=== PATIENT | male | born 2000 | race Caucasian/White ===

== ENCOUNTER 2021-06-14 00:29 | Emergency (ER) | payer OTHER ==
[~2021-06-14] VITALS: Ht 190.5 cm; Wt 82.2 kg
[2021-06-14] MEDS ORDERED: SODIUM CHLORIDE FLUSH 10ML SYR IVF ONE (01:00)
[2021-06-14] MEDS ORDERED: ONDANSETRON 2MG/ML, 2ML IVPush ONE (01:00)
[2021-06-14] MEDS ORDERED: SODIUM CHLORIDE 0.9% 1,000ML IVBOLUS ONE (01:00)
[2021-06-14] MEDS ORDERED: PLEASE ENTER ALLERGIES MC SCH (01:00)
[2021-06-14 01:05] LABS: BASOPHILS % (AUTO) 1 % (0-1); EOSINOPHILS % (AUTO) 1 % (1-7); LYMPHOCYTES % (AUTO) 16 % (22-44); MEAN CORPUSCULAR HEMOGLOBIN 30.3 pg (27.5-34.5); MEAN CORPUSCULAR HGB CONC 34.6 g/dL (33.2-36.2); MEAN PLATELET VOLUME 8.5 fL (7.4-10.4); MONOCYTES % (AUTO) 6 % (2-9); NEUTROPHILS % (AUTO) 77 % (42-75); PLATELET COUNT 273 x10^3/uL (130-400); RED BLOOD COUNT 5.95 x10^6/uL (4.38-5.82); RED CELL DISTRIBUTION WIDTH 12.9 % (9.4-14.8)
[2021-06-14 01:07] LABS: ALANINE AMINOTRANSFERASE 36 U/L (12-78); ANION GAP 7 mmol/L (5-15); CALCIUM 9.6 mg/dL (8.5-10.1); CHLORIDE 99 mmol/L (98-107); CREATININE 1.03 mg/dL (0.7-1.3)
[2021-06-14 01:10] LABS: ALKALINE PHOSPHATASE 68 U/L (45-117); BILIRUBIN,TOTAL 0.9 mg/dL (0.2-1.0); TOTAL PROTEIN 8.5 g/dL (6.4-8.2)
--- NOTE | 2021-06-14 01:35 | NUR ---
PT AMBULATED BACK TO THIS RNS ROOM AT THIS TIME. NAD, CAME IN FOR ABDOMINAL PAIN AND N/V FOR 2 DAYS, ALSO CO PENNY. PT REPORTS ONLY BEING ABLE TO KEEP DOWN PRUNE JUICE AND SOME DIARRHEA WITH SYMPTOMS. Patient is resting comfortably in bed. Bed in lowest, rails engaged, call light on lap. Vital Signs within normal limits. WCTM.
[2021-06-14] MEDS ORDERED: ONDANSETRON 2MG/ML, 2ML ONE (01:38)
--- NOTE | 2021-06-14 01:59 | NUR ---
Patient is resting comfortably in bed. Bed in lowest, rails engaged, call light on lap. Vital Signs within normal limits. MEDICATED PER NOV. WCTM.
[2021-06-14 02:48] VITALS: BP 122/68
--- NOTE | 2021-06-14 02:49 | NUR ---
Patient given discharge instructions and they have confirmed that they understand the instructions. Patient ambulatory with steady gait. NAD, all questions answered appropriately, denies additional needs at this time. No personal belongings left in room after discharge.
[2021-06-14] MEDS ORDERED: MAALOX/HYOSCYAMINE/LIDOCAINE 45 ML BTL ONE (02:56)
[2021-06-14] MEDS ORDERED: DICYCLOMINE 20 MG TABLET ONE (02:56)
[2021-06-14] MEDS ORDERED: MAALOX/HYOSCYAMINE/LIDOCAINE 45 ML BTL PO ONE (03:00)
[2021-06-14] MEDS ORDERED: DICYCLOMINE 20 MG TABLET PO ONE (03:00)
== END 2021-06-14 03:04 | disposition home or self-care (01) ==
LOC: ED 03:03
DX: R11.2 Nausea with vomiting, unspecified (principal); R10.13 Epigastric pain
CPT/HCPCS: 36415; 80053; 83690; 85025; 96361; 96374; 99283; J2405; J7030

== ENCOUNTER 2021-06-15 13:10 | Emergency (ER) | payer OTHER ==
[~2021-06-15] VITALS: Ht 190.5 cm; Wt 80.7 kg
[2021-06-15] MEDS ORDERED: ONDANSETRON 2MG/ML, 2ML IVPush ONE (14:00)
[2021-06-15] MEDS ORDERED: DIPHENHYDRAMINE 50 MG/ML, 1ML IV ONE (14:00)
[2021-06-15] MEDS ORDERED: METOCLOPRAMIDE 5 MG/ML, 2ML IVPush ONE (14:00)
[2021-06-15] MEDS ORDERED: MAALOX/HYOSCYAMINE/LIDOCAINE 45 ML BTL PO ONE (14:00)
[2021-06-15] MEDS ORDERED: FAMOTIDINE 20 MG/2 ML IVPush ONE (14:00)
[2021-06-15] MEDS ORDERED: SODIUM CHLORIDE 0.9% 1,000ML IVBOLUS ONE (14:00)
[2021-06-15 14:29] LABS: BASOPHILS % (AUTO) 0 % (0-1); EOSINOPHILS % (AUTO) 0 % (1-7); LYMPHOCYTES % (AUTO) 11 % (22-44); MEAN CORPUSCULAR HEMOGLOBIN 30.2 pg (27.5-34.5); MEAN CORPUSCULAR HGB CONC 34.6 g/dL (33.2-36.2); MONOCYTES % (AUTO) 7 % (2-9); NEUTROPHILS % (AUTO) 82 % (42-75); PLATELET COUNT 247 x10^3/uL (130-400); RED BLOOD COUNT 5.78 x10^6/uL (4.38-5.82); RED CELL DISTRIBUTION WIDTH 12.8 % (9.4-14.8)
[2021-06-15] MEDS ORDERED: FAMOTIDINE 20 MG/2 ML ONE (14:29)
[2021-06-15] MEDS ORDERED: ONDANSETRON 2MG/ML, 2ML ONE (14:29)
[2021-06-15] MEDS ORDERED: METOCLOPRAMIDE 5 MG/ML, 2ML ONE (14:29)
[2021-06-15] MEDS ORDERED: DIPHENHYDRAMINE 50 MG/ML, 1ML ONE (14:29)
[2021-06-15] MEDS ORDERED: MAALOX/HYOSCYAMINE/LIDOCAINE 45 ML BTL ONE (14:29)
[2021-06-15 14:35] LABS: CHLORIDE 98 mmol/L (98-107)
[2021-06-15 14:44] LABS: ALANINE AMINOTRANSFERASE 27 U/L (12-78); ALBUMIN 3.5 g/dL (3.4-5.0); ALKALINE PHOSPHATASE 63 U/L (45-117); ANION GAP 8 mmol/L (5-15); BILIRUBIN,TOTAL 0.9 mg/dL (0.2-1.0); CALCIUM 9.1 mg/dL (8.5-10.1); CREATININE 0.92 mg/dL (0.7-1.3)
--- NOTE | 2021-06-15 14:45 | NUR ---
LATE ENTRY FOR 1445: PT PRESENTS TODAY WITH C/O N/V X 3 DAYS, NOTING BLOOD IN EMESIS STARTING LAST NIGHT. PT HAS HAD NO VOMITING IN ED. PT A&O, RESPS EVEN AND UNLABORED, GIRLFRIEND AT BEDSIDE. BP AND SPO2 MONITORS IN PLACE. CALL LIGHT IN REACH.
[2021-06-15 14:47] VITALS: BP 135/85
--- NOTE | 2021-06-15 15:15 | NUR ---
LATE ENTRY FOR 1515: PT MEDUCATED PER EMAR, TOLERATED WELL. PT REPORTING COMPLETE RESOLUTION OF SYMPTOMS. PT IS A&O, RESPS EVEN AND UNLABORED, BP AND SPO2 MONITORS IN PLACE. CALL LIGHT IN REACH.
[2021-06-15] MEDS ORDERED: POTASSIUM CHLORIDE 20 MEQ TAB.ER.PRT ONE (15:25)
[2021-06-15] MEDS ORDERED: POTASSIUM CHLORIDE 20 MEQ TAB.ER.PRT PO ONE (15:30)
--- NOTE | 2021-06-15 15:32 | NUR ---
TASK RN: PT MEDICATED PER EMAR FOR HYPOKALEMIA. K+ 3.1. PT REPORTS "FEELING MUCH BETTER". DC EDUCATION PROVIDED, PT DEMONSTRATES UNDERSTANDING. PT AMBULATED STEADILY TO DC WITH RN AND FRIEND. MOTHER TO TRANSPORT PT HOME.
== END 2021-06-15 15:40 | disposition home or self-care (01) ==
LOC: ED 13:31
DX: R11.2 Nausea with vomiting, unspecified (principal); E86.0 Dehydration; E87.6 Hypokalemia; R10.13 Epigastric pain
CPT/HCPCS: 36415; 80053; 83690; 85025; 96361; 96374; 96375; 99284; J1200; J2405; J2765; J7030